=== PATIENT | female | born 1925 | race Caucasian/White ===

== ENCOUNTER 2016-11-28 14:47 | Observation (INO) ==
[2016-11-28] MEDS ORDERED: Naloxone 0.4 MG/ML INJ IVP PRN (16:39)
[2016-11-28] MEDS ORDERED: Acetaminophen 325 MG TABLET PO PRN (16:39)
[2016-11-28] MEDS ORDERED: Ondansetron 4 MG/2 ML VIAL IVP PRN (16:39)
[2016-11-28] MEDS ORDERED: *HR* Morphine 2 MG/ML SYRINGE IVP PRN (16:39)
[2016-11-28] MEDS ORDERED: *HR* HYDROcodone/Acet 5/325 mg TABLET PO PRN (16:51)
--- NOTE | 2016-11-28 17:08 | Internal Med History&Physical ---
<Greg Ferreira - Last Filed: 11/28/16 17:53> Date of Encounter: 11/28/16 Time of Encounter: 16:00 Assessment and Plan (1) Chest pain Current visit: Yes Status: Acute Patient presents with complaint of acute chest pain that she states was mid sternal and non-radiating that lasted approximately 10 minutes. She denies shortness of breath, nausea, vomiting, numbness, or tingling with the pain. She does report being extremely diaphoretic during the episode. She states that the chest pain is now subsided and she feels better. Mrs. Carbajal stated that the pain was similar to but much worse than the pain with her original DC. Orders placed for echocardiogram, nuclear pharm stress test, continuous cardiac telemetry, troponins 2, nitroglycerin PRN, supplemental O2 with titration if SPO2 less than 92%, continuous SPO2 monitoring. Patient placed NPO after midnight for a.m. testing. Will continue patient's Ranexa, isosorbide, losartan , Plavix, and 81 mg aspirin. Will hold Coreg due to nuclear pharm testing in a.m. Patient is currently followed by Dr. Burciaga for cardiology. Qualifiers: Chest pain type: precordial pain Qualified Code(s): R07.2 - Precordial pain (2) Weakness Current visit: Yes Status: Acute Patient presents with report of some weakness experienced during chest pain. Patient to be placed as falls precautions/up with assist/bedrest with bedside commode with assist only as safety precautions. (3) HLD (hyperlipidemia) Current visit: Yes Status: Chronic Patient presents with history of chronic hyperlipidemia. Lipid panel ordered. Lipitor 40 mg ordered daily. Qualifiers: Hyperlipidemia type: pure hypercholesterolemia Qualified Code(s): E78.00 - Pure hypercholesterolemia, unspecified; E78.0 - Pure hypercholesterolemia (4) HTN (hypertension) Current visit: Yes Status: Chronic Patient presents with history of chronic hypertension. Will continue patient's losartan. We will hold Coreg due to a.m. testing. Qualifiers: Hypertension type: essential hypertension Qualified Code(s): I10 - Essential (primary) hypertension (5) Thyroid disease Current visit: Yes Status: Chronic Patient presents with history of thyroid disease. Will continue patient's Synthroid. (6) CKD (chronic kidney disease) stage 3, GFR 30-59 ml/min Current visit: Yes Status: Chronic Patient presents with CKD stage III. Current GFR is 45 and is relatively unchanged from 10/16. Patient's GFR on 08/20 was 44, 41 on 11/01/15, and 50 on 03/29. Judicious use of IV fluids if needed. Will continue patient's PO Lasix for pedal edema. (7) DVT prophylaxis Current visit: Yes Status: Acute Patient to be placed on DVT prophylaxis due to admission protocol and bed rest status. Heparin 5,000 units SQ Q12 ordered. Will monitor patient for signs of bleeding. Internal Medicine - H&P: HPI Chief complaint: Chest pain Admitted From: Emergency Dept Plans for Post Hospital Care: Home History of present illness: Mrs. Carbajal is a 89 year old female who presents from [facility] with chief complaint of severe chest pain that she experienced when she was at the [facility] appointment this morning. Patient states that the pain was similar to but worse than the pain she experienced with her previous heart attack. She reports that the pain was relieved by nitroglycerin and lasted about 10 minutes. She states that it did not radiate to the back, neck, or arms. She denies nausea, vomiting, or SOB with the pain. She has a history of quintuple bypass with 3-stent placement and is currently followed by Dr. Burciaga at [facility]. She also denies any recent illness, fever, chills, generalized weakness, headaches, falls, pre-syncope, or syncope. She states that she has not had any cardiac issues since 2010. Patient has a medical history of CAD, HLD, HTN, DC 1, and thyroid disease. Patient is at moderate risk for cardiac event based on her current chest pain and symptoms as well as her history of risk factors. Patient has not had echo or nuclear pharm stress test in some time. Patient is to be admitted as observation status with orders for EV echocardiogram, nuclear pharm stress test, trending troponins 2, continuous cardiac telemetry, supplemental O2 titration if SPO2 less than 92% and continuous SPO2 monitoring, cardiac diet, nitroglycerin when necessary, continuation of patient's home meds, and falls precautions. Patient to be monitored closely. Time spent with patient >40 minutes. Past Med Surg Social Fam HX - Past Medical History Source: patient Medical history: coronary artery disease, hyperlipidemia, hypertension, myocardial infarction, thyroid disease Psychiatric history: anxiety, depression - Past Surgical History Surgical History: angioplasty/stent (x3), cataract, cholecystectomy, coronary bypass (CABG) (Quintuple bypass), knee replacement (Right knee), thyroidectomy - Social History Smoking Status: Never smoker Smokeless Tobacco Status: No Alcohol use: none Drug use: none Current living situation: Home, With Family Activity Level: Independent ambulation Recent Out of Country Travel Within the Last 8 Weeks: No Exposure or Possible Exposure to Illness During Travel: No - Family History Son Brother Hx Family Cardiac Disorders: Yes Father Race: Family Member Ethnicity: Non- Living Status: Age at : 84 Cause of : HD Hx Family Cardiac Disorders: Yes (HD, HTN) Hx Family Cancer: Yes (Pancreatic, Melanoma, Prostate) Hx Family Endocrine Disorder: Yes (DM) Mother Race: Family Member Ethnicity: Non- Living Status: Age at : 85 Cause of : Old age Hx Family Medical Disorders: No Brother Race: Family Member Ethnicity: Non- Living Status: Age at : 86 Cause of : DC Hx Family Cardiac Disorders: Yes (DC, HTN) Hx Family Neurologic Disorders: Yes (Alzheimer's disease) Sister Race: Family Member Ethnicity: Non- Living Status: Age at : 67 Cause of : Colon cancer Hx Family Cancer: Yes (Colon) Internal Medicine - H&P: Meds Aspirin Enteric Coated [Aspirin EC] 81 mg PO DAILY 04/15/15 [History] Carvedilol [Coreg] 6.25 mg PO BIDWM 04/15/15 [History] Clopidogrel [Plavix] 75 mg PO DAILY 04/15/15 [History] Furosemide [Lasix] 40 mg PO DAILY 04/15/15 [History] Hydrocodone/Acetaminophen [[place] 5-325 Tablet] 1 tab PO Q6H PRN 04/15/15 [ History] Isosorbide MONOnitrate (24 HR) [Imdur] 60 mg PO DAILY 04/15/15 [History] Levothyroxine [Synthroid] 150 mcg PO 0630 04/15/15 [History] Losartan [Cozaar] 100 mg PO DAILY 04/15/15 [History] Potassium Chloride 20 meq PO DAILY 04/15/15 [History] Ranolazine [Ranexa] 500 mg PO BID 04/15/15 [History] Sertraline [Zoloft] 25 mg PO DAILY 04/15/15 [History] Simvastatin [Zocor] 40 mg PO HS 04/15/15 [History] Allergies No Known Allergies Allergy (Verified 04/15/15 18:38) All Systems PM: A 10-system review of systems was performed and is negative for pertinent findings except as documented above in the HPI. - Constitutional Constitutional: no chills, no fever(s), no night sweats - EENT Eyes: no change in vision, no discharge, no pain, no photophobia Ears: no ear discharge, no ear pain, no tinnitus Nose, mouth and throat: no dysphagia, no nasal discharge, no neck pain, no sore throat - Breasts Breasts: as per HPI - Cardiovascular Cardiovascular ROS IM: as per HPI, chest pain, diaphoresis - Respiratory Respiratory: no cough, no dyspnea, no wheezing, no excessive phlegm production - Gastrointestinal Gastrointestinal: no abdominal pain, no diarrhea, no hematemesis, no hematochezia, no melena, no nausea, no vomiting - Genitourinary Genitourinary: no change in urinary stream, no dysuria, no flank pain, no hematuria Menstruation: as per HPI, post menopausal - Musculoskeletal Musculoskeletal ROS IM: no numbness, no tingling - Integumentary Integumentary IM: no rash, no unusual bruising - Neurological Neurological ROS: no confusion, no convulsions, no focal weakness, no numbness, no tingling, no tremor(s) - Psychiatric Psychiatric: as per HPI - Endocrine Endocrine IM: as per HPI - Hematologic/Lymphatic Hematologic/Lymphatic: as per HPI, easy bleeding, no easy bruising - Allergic/Immunologic Allergic/Immunologic: as per HPI - Constitutional Vitals: Temp Pulse Resp BP Pulse Ox 98.2 F 64 17 173/76 96 11/28/16 16:01 11/28/16 16:01 11/28/16 16:01 11/28/16 16:01 11/28/16 16:01 General appearance: Present: cooperative, A&O X 3, pleasant, no acute distress, obese, answers questions appropriately (Was not wearing her hearing aids, so information from patient and family) - Head Head exam: Present: atraumatic, normocephalic - Eye Eye exam: Present: PERRL, conjuntiva pink, sclera anicteric Pupils: Present: PERRL - ENT ENT exam: Present: normal exam, normal external ear exam - Neck Neck exam general surgery: Present: normal inspection, supple, trachea midline. Absent: lymphadenopathy - Respiratory Respiratory exam: Present: CTAB. Absent: accessory muscle use, rales, rhonchi, wheezes - Cardiovascular Cardiovascular exam: Present: RRR, +S1, +S2. Absent: diastolic murmur, gallop, rubs, systolic murmur - GI/Abdominal GI/Abdominal exam: Present: normal bowel sounds, soft, no peritoneal signs. Absent: distended, tenderness - Rectal Rectal exam: Present: deferred - Additional comments: exam deferred. - Extremities Exam Extremities exam: Present: pedal edema (Mild non-pitting pedal edema bilaterally ), warm, radial pulses palpable and symetrical. Absent: calf tenderness, cyanotic - Back Exam Back exam: Present: normal inspection - Neurological Exam Neurological exam: Present: CN II-XII intact, oriented X3, no focal deficits. Absent: pronater drift, facial droop, speech deficit - Psychiatric Psychiatric exam: Present: normal affect, normal mood - Skin Skin exam: Present: dry, intact Internal Med - H&P Results - EKG Data EKG shows normal: sinus rhythm - EKG Data Prior EKG available for review: no EKG comments: 11/28/16 17:28 EKG dated 11/27/16 shows sinus rhythm with moderate ST depression. <Levi Hartman - Last Filed: 11/28/16 18:56> Date of Encounter: 11/28/16 Internal Medicine - H&P: HPI History of present illness: Ms. Carbajal is a 89 year old female All Systems PM: A 10-system review of systems was performed and is negative for pertinent findings except as documented above in the HPI. - Constitutional Vitals: Temp Pulse Resp BP Pulse Ox 98.2 F 64 17 173/76 96 11/28/16 16:01 11/28/16 16:01 11/28/16 16:01 11/28/16 16:01 11/28/16 16:01 - Attending Attestation I have seen and examined the patient at around 18:00. I discussed about the patient with Greg Ferreira NP. I reviewed the orders and the note. Patient is a 84-year-old female with a past history of these, hypertension, hyperlipidemia, thyroid disease, coronary artery disease status post stents and status post CABG and anxiety and depression. She presents as a transfer from [place] [facility]. Patient initially presented to [place] [facility] with complaints of chest pain. Patient states it [facility] States it was similar to the pain that she had nausea or tach. Pain was relieved by nitroglycerin. Pain was substernal with no radiation. She also had pain in the epigastric region. No shortness of breath no vomiting no nausea , no palpitations and no cough. No fever or chills or generalized weakness or headaches or syncope. Patient does have a significant history of coronary artery disease. Initial workup at [place] [facility] revealed a normal EKG with no acute ST-T changes and a normal chest x-ray and a negative troponin. ED physician requested transfer because the family wanted patient to be admitted to our facility. Patient states she has not had a stress test in many years. On examination patient is awake and alert. Not in any distress. Able to answer all questions appropriately. Family is at bedside. Patient is being admitted for chest pain rule out ACS. Patient will be on aspirin and statin. Echocardiogram and stress test are pending. Patient and family members have been explained about her condition and plan of care in detail. Understood and agreed. No unanswered questions. CODE STATUS DO NOT RESUSCITATE and DO NOT INTUBATE status as per patient and family. Heart rate 64, blood pressure 173/76, O2 sat 96% on room air, heart S1-S2 positive no murmurs or rubs, lungs bilateral good entry no wheezes or crackles, abdomen soft nontender no masses or guarding. Extremities all pulses strong and regular mild bilateral lower leg edema.
[2016-11-28] MEDS ORDERED: Nitroglycerin 0.4 MG TAB.SUBL SL PRN (17:29)
[2016-11-28] MEDS ORDERED: *HR* Heparin 5,000 UNIT/ML VIAL SQ SCH (18:00)
[2016-11-28] MEDS: Aspirin Enteric Coated 81 MG Tablet PO SCH (23:38)
[2016-11-28] MEDS: Ranolazine 500 MG TAB.ER.12H PO SCH (23:39)
[2016-11-29 00:49] LABS: Basophils % 0.7 %; Eosinophils # 0.1 K/mcL (0.0-0.6); Eosinophils % 1.3 %; Hematocrit 37.4 % (35.3-44.9); Hemoglobin 11.8 g/dL (11.5-15.4); Immature Granulocytes % 0.9 % (0-4); Lymphocytes # 1.7 K/mcL (0.6-4.6); Lymphocytes % 31.4 %; Mean Corpuscular HGB Conc 31.6 g/dL (31.6-35.5); Mean Corpuscular Hemoglobin 30.4 pg (28.0-33.3); Mean Corpuscular Volume 96.4 fL (83.0-100.0); Mean Platelet Volume 9.1 fL (9.4-12.4); Monocytes # 0.6 K/mcL (0.0-1.3); Monocytes % 11.3 %; Neutrophils # 2.9 K/mcL (1.6-8.9); Platelet Count 152 K/mcL (140-400); Red Blood Count 3.88 M/mcL (3.82-4.97); Red Cell Distribution Width 13.8 % (11.5-14.5); Segmented Neutrophils % 54.4 %
[2016-11-29 01:09] LABS: Calcium 9.1 mg/dL (8.6-10.8); Chol/HDL Ratio 2.9 (0-4.9); Magnesium 2.1 mg/dL (1.6-2.6); Potassium 3.6 mEq/L (3.5-4.5)
[2016-11-29] MEDS ORDERED: *HR* Enoxaparin 80 MG/0.8 ML SYRINGE SQ ONE (03:26)
[2016-11-29] MEDS ORDERED: 0.9 % Sodium Chloride 1,000 ML IVC SCH (08:15)
[2016-11-29] MEDS ORDERED: Ranolazine 500 MG TAB.ER.12H PO SCH (09:00)
[2016-11-29] MEDS ORDERED: Isosorbide MONOnitrate (24 HR) 60 MG TAB.ER.24H PO SCH (09:00)
--- NOTE | 2016-11-29 14:28 | Cardiology Consult Note ---
<Angelica Lucero Nas - Last Filed: 11/29/16 15:30> Date of Encounter: 11/29/16 Time of Encounter: 14:20 Assessment and Plan (1) Elevated troponin Current Visit: Yes Status: Acute Troponin negative x2 then 0.04 in the setting of CKD and poorly controlled BP. Likely secondary to demand ischemia. ECG similar to previous in 2014. Reports single episode of chest pain, epigastric in nature, yesterday. Reportedly resolved with single NTG tab Hx of CAD s/p CABG, PCI. LHC (2010) demonstrated 4/5 patent bypass grafts and occluded SVG-PDA stent. Negative nuclear stress test in 2013. TTE 2013 demonstrated preserved LVEF, 50- 55% with normal wall motion. Given DNRCC-A DNI and advanced age, recommend conservative medical therapy. Will increase imdur to improve BP control/angina. Continue asa, statin, plavix, betablocker, and ranexa. TTE today shows preserved LVEF with normal wall motion. No further recommendations from inpatient Cardiology standpoint. Recommend close outpatient follow-up. (2) CKD (chronic kidney disease) stage 3, GFR 30-59 ml/min Current Visit: Yes Status: Chronic SCr mildly elevated from baseline. Stable, continue to monitor. (3) Hx of CABG Current Visit: Yes Status: Acute plan as above. Discussion w patient/family: The assessment and plan as outlined above was discussed with the patient and/or family members who expressed understanding and agreement. All questions were answered. Thank you for involving us in the care of your patient. Please call with any questions. The patient will be discussed and reviewed with Dr. Santos; changes to be made accordingly. History of Present Illness Consult date: 11/29/16 Requesting physician: Ayan Salazar Consult reason: Elevated troponin Chief complaint: Chest pain History of present illness: Ms. Carbajal is a 89 year old female with PMHx significant for CAD s/p CABG, PCI , HTN, and HLD who presented to [facility] after episode of chest discomfort that occurred yesterday morning at the [employer] Reports she felt the sensation to belch and was able to do so; after belching she reportedly became diaphoretic and EMS was called. She was given NTG tab which did improve the pain. Chest/epigastric pain was resolved upon EMS arrival. She was then recommended for transfer to [facility] for further evaluation. ECG unchanged from prior in 2013. Initial troponin negative. Denies recurrent chest pain since episode yesterday. Family present at beside during examination. Prior CV testing: TTE 07/2013: LVEF 50-55%, mild LVDD, mild AR, no PH, normal wall motion Regadenoson nuclear 07/2013: perfusion imaging negative for ischemia or infarct, normal hemodynamic response, gated EF=56% [facility] 10/16/10: s/p 4 of 5 patent bypass grafts (PITT-LAD, SVG-OM1, SVG-PDA, SVG -diag 1 and occluded pre-existing stent of the sequential segment of the SVG- right posterior atrioventricular segment), EF 45% Past Med Surg Social Fam HX - Past Medical History Attestation: Yes The following information was validated with the patient. Source: patient, obtained from family Medical history: coronary artery disease, hyperlipidemia, hypertension, myocardial infarction, thyroid disease Psychiatric history: anxiety, depression - Past Surgical History Surgical History: angioplasty/stent (x3), cataract, cholecystectomy, coronary bypass (CABG) (Quintuple bypass), knee replacement (Right knee), thyroidectomy - Social History Smoking Status: Never smoker Smokeless Tobacco Status: No Alcohol use: none Drug use: none - Family History Son Brother Hx Family Cardiac Disorders: Yes Father Race: Family Member Ethnicity: Non- Living Status: Age at : 84 Cause of : HD Hx Family Cardiac Disorders: Yes (HD, HTN) Hx Family Cancer: Yes (Pancreatic, Melanoma, Prostate) Hx Family Endocrine Disorder: Yes (DM) Mother Race: Family Member Ethnicity: Non- Living Status: Age at : 85 Cause of : Old age Hx Family Medical Disorders: No Brother Race: Family Member Ethnicity: Non- Living Status: Age at : 86 Cause of : NH Hx Family Cardiac Disorders: Yes (NH, HTN) Hx Family Neurologic Disorders: Yes (Alzheimer's disease) Sister Race: Family Member Ethnicity: Non- Living Status: Age at : 67 Cause of : Colon cancer Hx Family Cancer: Yes (Colon) Medications and Allergies Aspirin Enteric Coated [Aspirin EC] 81 mg PO DAILY 04/15/15 [History] Carvedilol [Coreg] 12.5 mg PO DAILY 04/15/15 [History] Clopidogrel [Plavix] 75 mg PO HS 04/15/15 [History] Furosemide [Lasix] 40 mg PO DAILY 04/15/15 [History] Hydrocodone/Acetaminophen [[place] 5-325 Tablet] 1 tab PO Q6H PRN 04/15/15 [ History] Isosorbide MONOnitrate (24 HR) [Imdur] 60 mg PO DAILY 04/15/15 [History] Levothyroxine [Synthroid] 150 mcg PO 0630 04/15/15 [History] Losartan [Cozaar] 100 mg PO DAILY 04/15/15 [History] Potassium Chloride 20 meq PO DAILY 04/15/15 [History] Ranolazine [Ranexa] 500 mg PO BID 04/15/15 [History] Sertraline [Zoloft] 25 mg PO DAILY 04/15/15 [History] Simvastatin [Zocor] 40 mg PO HS 04/15/15 [History] Allergies No Known Allergies Allergy (Verified 11/29/16 10:30) All Systems Review: A 10-system review of systems was performed and is negative for pertinent findings except as documented above in the HPI. - Cardiovascular Cardiovascular: as per HPI Physical Examination Vital Signs, Last 4 Hours Temp Pulse Resp BP Pulse Ox 11/29/16 12:08 98.3 F 59 17 176/64 96 General: Conversant, No Apparent Distress, Other (forgetful, hard of hearing) HEENT: Atraumatic, Normocephaly Cardiac: Reg Rate and Rhythm, Normal S1 and S2 Lungs: Normal Breath Sounds Neuro: Alert and responsive Abdomen: Soft Skin: No rashes noted on visualized skin, Other (several areas of ecchymosis noted to bilateral upper extremities) Musculoskeletal: No Chest Wall Tenderness Extremities: No Edema, Normal Pulses Results 11/29/16 00:37 11/29/16 00:37 Lab Results 11/28/16 11/29/16 11/29/16 18:38 00:37 00:37 WBC 5.4 Hgb 11.8 Hct 37.4 Plt Count 152 Sodium Potassium Chloride Carbon Dioxide BUN Creatinine Glucose Calcium Magnesium Troponin I 0.02 0.04 H* B-Natriuretic Peptide 11/29/16 11/29/16 00:37 00:37 WBC Hgb Hct Plt Count Sodium 141 Potassium 3.6 Chloride 104 Carbon Dioxide 29 BUN 29 H Creatinine 1.25 H Glucose 97 Calcium 9.1 Magnesium 2.1 Troponin I B-Natriuretic Peptide 208 H Active Medications Acetaminophen (Tylenol) 650 mg PO Q6HR PRN PRN Reason: Mild Pain (1-3) Stop: 05/30/17 16:40 Hydrocodone Bitart/Acetaminophen ([place] 5-325 Mg) 1 tab PO Q4HR PRN PRN Reason: Moderate Pain (4-6) Stop: 05/30/17 16:52 Aspirin (Aspirin Ec) 81 mg PO DAILY [facility] Stop: 05/30/17 22:01 Last Admin: 11/28/16 23:38 Dose: Not Given Carvedilol (Coreg) 12.5 mg PO DAILY [facility] PRN Reason: Protocol Stop: 05/31/17 09:01 Clopidogrel Bisulfate (Plavix) 75 mg PO HS [facility] Stop: 05/30/17 23:18 Last Admin: 11/28/16 23:39 Dose: 75 mg Furosemide (Lasix) 40 mg PO DAILY [facility] Stop: 05/31/17 09:01 Sodium Chloride (0.9 % Sodium Chloride) 1,000 mls @ 50 mls/hr IVC .Q20H [facility] Stop: 05/31/17 08:16 Last Admin: 11/29/16 09:07 Dose: 50 mls/hr Isosorbide Mononitrate (Imdur) 60 mg PO DAILY [facility] Stop: 05/31/17 09:01 Levothyroxine Sodium (Synthroid) 150 mcg PO 0630 [facility] Stop: 05/31/17 06:31 Last Admin: 11/29/16 06:06 Dose: 150 mcg Losartan Potassium (Cozaar) 100 mg PO DAILY [facility] PRN Reason: Protocol Stop: 05/31/17 09:01 Morphine Sulfate (Morphine Sulfate) 2 mg IVP Q4HR PRN PRN Reason: Severe Pain (7-10) Stop: 05/30/17 16:40 Naloxone HCl (Narcan) 0.4 mg IVP Q2MIN PRN PRN Reason: Opioid Reversal Stop: 05/30/17 16:40 Nitroglycerin (Nitroglycerin) 0.4 mg SL Q5MIN PRN PRN Reason: Chest Pain Stop: 05/30/17 17:30 Ondansetron HCl (Zofran) 4 mg IVP Q8HR PRN PRN Reason: Nausea And Vomiting Stop: 05/30/17 16:40 Pantoprazole Sodium (Protonix) 40 mg IVP DAILY UTE Stop: 05/31/17 09:01 Potassium Chloride (Potassium Chloride) 20 meq PO DAILY UTE Stop: 05/31/17 09:01 Ranolazine (Ranexa) 500 mg PO BID UTE Stop: 05/30/17 23:19 Last Admin: 11/28/16 23:39 Dose: 500 mg Sertraline HCl (Zoloft) 25 mg PO DAILY UTE Stop: 05/31/17 09:01 Simvastatin (Zocor) 40 mg PO HS UTE PRN Reason: Protocol Stop: 05/30/17 23:19 Last Admin: 11/28/16 23:40 Dose: 40 mg - Imaging and Cardiology Echo: report reviewed Cardiac cath: report reviewed - EKG Interpretation EKG results cardiology: personally reviewed Consult Discharge Plan - Plan Referrals: Martin Nuno MD [Primary Care Provider] - <Meagan Santos - Last Filed: 11/29/16 16:46> Date of Encounter: 11/29/16 Assessment and Plan Discussion w patient/family: The assessment and plan as outlined above was discussed with the patient and/or family members who expressed understanding and agreement. All questions were answered. Thank you for involving us in the care of your patient. Please call with any questions. History of Present Illness History of present illness: Ms. Carbajal is a 89 year old female All Systems Review: A 10-system review of systems was performed and is negative for pertinent findings except as documented above in the HPI. Physical Examination Vital Signs, Last 4 Hours Temp Pulse Resp BP Pulse Ox 11/29/16 16:01 97.8 F 65 15 181/72 96 Results 11/29/16 00:37 11/29/16 00:37 Lab Results 11/28/16 11/29/16 11/29/16 18:38 00:37 00:37 WBC 5.4 Hgb 11.8 Hct 37.4 Plt Count 152 Sodium Potassium Chloride Carbon Dioxide BUN Creatinine Glucose Calcium Magnesium Troponin I 0.02 0.04 H* B-Natriuretic Peptide 11/29/16 11/29/16 00:37 00:37 WBC Hgb Hct Plt Count Sodium 141 Potassium 3.6 Chloride 104 Carbon Dioxide 29 BUN 29 H Creatinine 1.25 H Glucose 97 Calcium 9.1 Magnesium 2.1 Troponin I B-Natriuretic Peptide 208 H - Attending Attestation I examined this patient and my medical decision-making was reviewed with the ACC[employer]ION TUNER/PA/Advanced Practice Nurse/Resident Physician. I agree with the documented findings, disposition and treatment plan. Ms. Carbajal presented to [facility] after an episode of chest discomfort that occurred yesterday while at a [employer] getting her hair done. The description of symptoms is atypical; described as nausea, belching, diaphoretic. Discomfort resolved upon EMS arrival. She has been free of pain since. ECG from 2013 were compared to ECG done 11/28 and then 11/29 (some artifact noted). All demonstrate nonspecific ST abnormalities without worsening or new ischemic changes. Her troponin initially normal x2 then 0.04 in the setting of CKD and poorly controlled BP. This troponin is not indicative of an ACS. She also had an echo done with demonstrated EF 55% without new wall motion abnormalities. Recommend conservative treatment. This was discussed with the patient and her son at the bedside. All expressed understanding and agreement with the plan. Continue asa, statin, plavix, BB and ranexa. Imdur increased to help with BP control. Will sign off. Please call with questions.
--- NOTE | 2016-11-29 15:14 | Internal Med Progress Note ---
Date of Encounter: 11/29/16 Time of Encounter: 09:30 - Assessment and plan (1) Chest pain Current Visit: Yes Status: Acute Assessment and plan: Patient had one episode of chest pain lasting about 10 minutes. The pain was relieved by nitroglycerin. The pain was relieved before she reached the emergency department by squad. She denied shortness of breath, nausea, vomiting , but states that she was profusely diaphoretic, daughter states that she was pale. Department and has been elevated twice in the setting of chronic kidney disease stage III and uncontrolled hypertension, as well as mildly elevated BNP. Likely secondary to demand ischemia. She has been evaluated by cardiology. Patient has extensive cardiac history, daughter states she has multiple MRIs and multiple stents. She had CABG in 2003. LHC in 2010 showed 4/5 patent bypass grafts and occluded stent. She had a negative stress test in 2013. Echo in 2013 showed preserved LVEF, 50-55% with normal wall motion. Cardiology has recommended conservative medical therapy given patient's DNRCC-A, DNI status, and advanced age. Imdur has been increased, she will continue aspirin, statin, Plavix, beta mary, and Ranexa. Echo today showed LVEF is preserved with normal wall motion. Cardiology has signed off. Qualifiers: Chest pain type: unspecified Qualified Code(s): R07.9 - Chest pain, unspecified (2) Weakness Current Visit: Yes Status: Acute Assessment and plan: Patient reports some weakness at time of event and chest pain. She has none now. Patient lives with her daughter at home and is very active at home. She does her own laundry and cooking. She only requires help with her shower. She stays at home during the day and does not require any devices to help with ambulation other than she uses a cane when she walks outside for safety purposes. Patient denies weakness now other than she states that she has been lying around too long. I did encourage her to try to get into the chair and ambulate to and from the bathroom only with assistance. I do not believe that she requires PT or OT at this time. (3) Elevated troponin Current Visit: Yes Status: Acute Assessment and plan: Most likely and ischemia from chronic kidney disease, hypertension, mild BNP elevation. Plan as above (4) HLD (hyperlipidemia) Current Visit: Yes Status: Chronic Assessment and plan: Chronic. Continue home medications. Qualifiers: Hyperlipidemia type: pure hypercholesterolemia Qualified Code(s): E78.00 - Pure hypercholesterolemia, unspecified; E78.0 - Pure hypercholesterolemia (5) HTN (hypertension) Current Visit: Yes Status: Chronic Qualifiers: Hypertension type: essential hypertension Qualified Code(s): I10 - Essential (primary) hypertension (6) Thyroid disease Current Visit: Yes Status: Chronic Assessment and plan: Chronic. Continue home medications. (7) CKD (chronic kidney disease) stage 3, GFR 30-59 ml/min Current Visit: Yes Status: Chronic Assessment and plan: GFR 40, creatinine 1.25. This is only slightly elevated and patient's normal baseline. Avoid nephrotoxins Monitor labs Continue patient's normal home by mouth Lasix dose for pedal edema. (8) DVT prophylaxis Current Visit: Yes Status: Acute Assessment and plan: Heparin subcutaneous daily. - Time Spent With Patient less than 15 minutes - Subjective Interval history: Patient was seen and assessed at 9:30 AM. Patient is hard of hearing, daughter was at bedside. Patient lives with daughter and is normally very active and self-sufficient at home. She does her own laundry and cooking, the only thing she needs help with her shower. She stays at home alone during the day while her daughter goes to work. Daughter denies any falls for the last 2 years. Patient does not require any aids for walking, no walker and uses a cane outside only for safety precautions. Yesterday patient was at her hair appointment. She was leaning back into a sink and when she sat up, she sat forward in a chair leaned over, burps, and became diaphoretic, pale and had midsternal nonradiating chest pain that was relieved with nitroglycerin. Pain had completely resolved prior to squad arriving at the [employer] [facility]. Patient was transferred here from [facility] [address] for admission and evaluation. Patient has had elevated troponin since she has been here 0.04 in the setting of chronic kidney disease and hypertension. BNP is also elevated at 208. Patient has been chest pain-free since initial event. Due to her extensive cardiac history , we will watch her overnight, as long as she is stable we will discharge in the morning. - Constitutional Vitals: Temp Pulse Resp BP Pulse Ox 98.3 F 59 17 176/64 96 11/29/16 12:08 11/29/16 12:08 11/29/16 12:08 11/29/16 12:08 11/29/16 12:08 General appearance: Present: cooperative, A&O X 3, pleasant, no acute distress, obese, answers questions appropriately (Was not wearing her hearing aids, so information from patient and family) - Head Head exam: Present: normal inspection - Eye Eye exam: Present: normal appearance, conjuntiva pink - ENT ENT exam: Present: mucous membranes moist, normal exam, normal external ear exam - Neck Neck exam general surgery: Present: normal inspection. Absent: lymphadenopathy , tenderness - Respiratory Respiratory exam: Present: CTAB. Absent: chest wall tenderness, decreased breath sounds, rales, respiratory distress, rhonchi, stridor, wheezes - Cardiovascular Cardiovascular exam: Present: RRR, +S1, +S2. Absent: diastolic murmur, systolic murmur - GI/Abdominal GI/Abdominal exam: Present: distended, normal bowel sounds, soft. Absent: hepatomegaly, tenderness - Extremities Exam Extremities exam: Present: pedal edema, warm, radial pulses palpable and symetrical. Absent: tenderness - Neurological Exam Neurological exam: Present: alert, oriented X3, no focal deficits. Absent: facial droop, speech deficit - Skin Skin exam: Present: dry, normal color, warm. Absent: rash Internal Medicine: Result - Labs CBC & Chem 7: 11/29/16 00:37 11/29/16 00:37 Labs: Short CBC 11/29/16 Range/Units 00:37 WBC 5.4 (4.3-11.1) K/mcL Hgb 11.8 (11.5-15.4) g/dL Hct 37.4 (35.3-44.9) % Plt Count 152 (140-400) K/mcL Neutrophils # 2.9 (1.6-8.9) K/mcL BMP 11/29/16 00:37 Sodium 141 Potassium 3.6 Chloride 104 Carbon Dioxide 29 BUN 29 H Creatinine 1.25 H Glucose 97 Calcium 9.1 Cardiac Enzymes 11/28/16 11/29/16 Range/Units 18:38 00:37 Troponin I 0.02 0.04 H* (0-0.03) ng/mL Consult Discharge Plan - Plan Referrals: Martin Nuno MD [Primary Care Provider] -
[2016-11-29] MEDS: Aspirin Enteric Coated 81 MG Tablet PO SCH (17:20)
[2016-11-29] MEDS: Furosemide 40 MG TABLET PO SCH (17:20)
[2016-11-29] MEDS: Pantoprazole 40 MG VIAL IVP SCH (17:20)
[2016-11-29] MEDS: Ranolazine 500 MG TAB.ER.12H PO SCH ×2 (17:29→21:31)
[2016-11-30 07:48] VITALS: BP 178/75
[2016-11-30] MEDS ORDERED: Isosorbide MONOnitrate (24 HR) 60 MG TAB.ER.24H PO SCH (09:00)
[2016-11-30] MEDS: Aspirin Enteric Coated 81 MG Tablet PO SCH (09:17)
[2016-11-30] MEDS: Furosemide 40 MG TABLET PO SCH (09:17)
[2016-11-30] MEDS: Ranolazine 500 MG TAB.ER.12H PO SCH (09:17)
[2016-11-30] MEDS: Pantoprazole 40 MG VIAL IVP SCH (09:18)
--- NOTE | 2016-11-30 12:48 | Discharge Summary ---
Date of Encounter: 11/30/16 Time of Encounter: 10:40 - Discharge Diagnosis (1) Chest pain Priority: Primary Status: Acute Comments: Patient denies chest pain since prior to arrival. She has been seen by cardiology. Her troponins were negative 2 then slightly elevated in the setting of CK D and hypertension. Most likely due to demand ischemia. Patient has history of coronary artery disease status post CABG, PCI. She had LHC in 2010 demonstrated 4 out of 5 patent bypass grafts and one occluded. She had a negative stress test in 2013. TTE in 2014 showed preserved ejection fraction, 50-55% with normal wall motion. TTE today shows basically unchanged values. Due to her advanced age, and her DNR status, cardiology recommends increasing Imdur to improve blood pressure control and control the pain. She will continue aspirin, statin, Plavix, beta mary, and Ranexa. Qualifiers: Chest pain type: unspecified Qualified Code(s): R07.9 - Chest pain, unspecified (2) Weakness Priority: Secondary Status: Acute Comments: Patient denies weakness today. She is ready to get up and take a shower. She said she has been up to and from the bathroom without difficulty. She said she feels much better. Bilateral upper and lower extremities are strong and equal, no deficits noted on physical exam. (3) Elevated troponin Priority: Secondary Status: Acute Comments: Adynamic elevation of troponin in setting of poorly controlled blood pressure and chronic kidney disease. Most likely due to demand ischemia. Patient denies chest pain since time of arrival. (4) HLD (hyperlipidemia) Priority: Secondary Status: Chronic Comments: Lisa. Continue home medications. Qualifiers: Hyperlipidemia type: pure hypercholesterolemia Qualified Code(s): E78.00 - Pure hypercholesterolemia, unspecified; E78.0 - Pure hypercholesterolemia (5) HTN (hypertension) Priority: Secondary Status: Chronic Comments: Chronic. Continue home medications. Qualifiers: Hypertension type: essential hypertension Qualified Code(s): I10 - Essential (primary) hypertension (6) Thyroid disease Priority: Secondary Status: Chronic Comments: Chronic. Continue medications. (7) CKD (chronic kidney disease) stage 3, GFR 30-59 ml/min Priority: Secondary Status: Chronic Comments: Chronic. Continue to follow with primary care and nephrology. Avoid nephrotoxins. Creatinine 1.25, near patient's baseline. (8) DVT prophylaxis Priority: Secondary Status: Acute Comments: Heparin subcutaneous daily. - Discharge Medications Prescriptions: Isosorbide MONOnitrate (24 HR) [Imdur] 90 mg PO DAILY #30 tab.er.24h Home Medications: Aspirin Enteric Coated [Aspirin EC] 81 mg PO DAILY 04/15/15 [History] Carvedilol [Coreg] 12.5 mg PO DAILY 04/15/15 [History] Clopidogrel [Plavix] 75 mg PO HS 04/15/15 [History] Furosemide [Lasix] 40 mg PO DAILY 04/15/15 [History] Hydrocodone/Acetaminophen [Aurelia 5-325 Tablet] 1 tab PO Q6H PRN 04/15/15 [ History] Levothyroxine [Synthroid] 150 mcg PO 0630 04/15/15 [History] Losartan [Cozaar] 100 mg PO DAILY 04/15/15 [History] Potassium Chloride 20 meq PO DAILY 04/15/15 [History] Ranolazine [Ranexa] 500 mg PO BID 04/15/15 [History] Sertraline [Zoloft] 25 mg PO DAILY 04/15/15 [History] Simvastatin [Zocor] 40 mg PO HS 04/15/15 [History] Isosorbide MONOnitrate (24 HR) [Imdur] 90 mg PO DAILY #30 tab.er.24h 11/30/16 [ Rx] Allergies/Adverse Reactions: Allergies No Known Allergies Allergy (Verified 11/29/16 10:30) Procedures/tests Complete & Pending: Procedures Performed prior 72 hours Category Date Time Status EV echocardiogram Routine Y 11/28/16 16:52 Completed Date of admission: 11/28/16 15:24 Primary care physician: Martin Nuno MD Consults: 11/29/16 05:34 Consult to Cardiology [CONS] Routine Comment: Consulting Provider: Cardiology Katy Reason for Consult: Elevated troponin with significant cardiac history. Call Completed: No Discharging clinician: Mala Corona Anticipated date of discharge: 11/30/16 - Patient Status Disposition: Home, Self-Care Condition: Good Functional capacity at discharge: independent ambulation Overall status at discharge: patient is back to baseline - Discharge Instructions Follow Up With: Martin Nuno MD [Primary Care Provider] - Additional Instructions: Please follow with your primary care physician in the next 7-10 days for follow- up appointment. Turned to the emergency room if you have any further problems, if her symptoms return, or for any other concerns that you may have. Start your new dose of Imdur tomorrow. The rest of your home medications. - Diet and Activity Activity: increase activity as tolerated Diet: advance to your usual diet Hospital course: Ms. Carbajal is a 89 year old female with past medical history of chronic kidney disease stage III hypertension, hyperlipidemia, hypothyroidism. Patient is DNR , DNI. Patient was at the [facility] on day of admission, she was getting her hair washed, they sat her up she had midsternal chest pain lasting about 10 minutes. It was relieved by nitroglycerin before she even reached the emergency department, she has had no chest pain since she has been here. She denies shortness of breath, nausea, vomiting and states that she was profusely diaphoretic, daughter at bedside stated that she was pale yesterday. Her troponin has been elevated in the setting of chronic kidney disease stage III and uncontrolled hypertension, as well as mildly elevated blood pressure. Most likely secondary to demand ischemia. Patient echocardiogram here on November 29, impressions: LVEF 55%, normal LV chamber size, wall thickness, and function. There is atypical septal motion consistent with postoperative status. Mild LV diastolic dysfunction, normal RV structure and function, moderate AR, moderate MR, no pulmonary hypertension. There is no stress test available to me to compare at this time. She has been evaluated by cardiology, due to patient's age and DNR DNI status, there is no further intervention at this time other than increasing Imdur to 90 mg by mouth daily. I have sent a prescription to patient's pharmacy. Patient was also admitted for weakness. This was limited to these time of the event. She has not been weak since she has been here. She has been up and ambulating in her room. She was able to take a shower prior to discharge without difficulty. Patient is normally independent at home , does her own laundry, does not require assistive devices for walking. She cooks her own meals. She only requires assistance with shower. Patient labs and vital signs within normal limits. She will be going home to care of family. She lives with her daughter. Patient is ready for discharge. - Time Spent with Patient Total time spent providing and/or coordinating discharge services: Less than 30 minutes - Constitutional Vitals: Temp Pulse Resp BP Pulse Ox 97.7 F 65 16 178/75 95 11/30/16 07:47 11/30/16 07:47 11/30/16 07:47 11/30/16 07:47 11/30/16 09:45 General appearance: Present: cooperative, A&O X 3, pleasant, no acute distress, obese, answers questions appropriately (Was not wearing her hearing aids, so information from patient and family) - Head Head exam: Present: normal inspection - ENT ENT exam: Present: mucous membranes moist, normal exam - Respiratory Respiratory exam: Present: CTAB. Absent: decreased breath sounds, rales, respiratory distress, rhonchi, stridor, wheezes - Cardiovascular Cardiovascular exam: Present: RRR, +S1, +S2. Absent: diastolic murmur, systolic murmur - GI/Abdominal GI/Abdominal exam: Present: normal bowel sounds, soft. Absent: distended, hepatomegaly, tenderness - Extremities Exam Extremities exam: Present: normal inspection, warm, radial pulses palpable and symetrical. Absent: pedal edema, tenderness - Neurological Exam Neurological exam: Present: alert, oriented X3, strengths equal and symetr throughout. Absent: facial droop, speech deficit - Skin Skin exam: Present: dry, normal color, warm. Absent: rash
--- NOTE | 2016-11-30 16:00 | Electrocardiograph Report ---
[address] [place], [place] [address] Test Date: 2016-11-29 Pat Name: Karely Carbajal Department: 113 Room: 3B37 Gender: F [employer] Equipment [employer]r: [id number] : 1925 Requested By: Mala Corona Order Number: [id number] Reading MD: Navneet Yanez Measurements Intervals [place] Rate: 70 P: 38 CO: 254 QRS: 45 QRSD: 105 T: 0 QT: 435 QTc: 456 Interpretive Statements SINUS RHYTHM WITH FIRST DEGREE AV BLOCK ST DEVIATION AND MODERATE T-WAVE ABNORMALITY, CONSIDER LATERAL ISCHEMIA ST DEVIATION AND MODERATE T-WAVE ABNORMALITY, CONSIDER INFERIOR ISCHEMIA Electronically Signed On 11-30-2016 15:59:12 EDT by Navneet Yanez
== END 2016-11-30 13:50 | disposition home or self-care (01) ==
LOC: 3BNU
PROVIDERS: ADMIT Family Medicine; ATTEND Registered Nurse